=== PATIENT | female | born 1955 | race African-American/Black ===

== ENCOUNTER 2017-06-19 06:03 | Inpatient (IN) | payer BC ==
[2017-06-18] MEDS: POTASSI CL 20 MEQ/50 ML RIDER 20 MEQ/50 ML RTUPB IV SCH (10:00)
--- NOTE | 2017-06-19 06:21 | ER Document Report ---
ED General - General Chief Complaint: Shortness Of Breath Stated Complaint: SHORTNESS OF BREATH, WEAKNESS Time Seen by Provider: 06/19/17 06:13 Mode of Arrival: Ambulatory Information source: Patient Notes: 61-year-old female needs of sudden shortness breath difficulty breathing just prior to arrival. Patient notes at 5 AM she felt fine at 505 she suddenly could not breathe. Patient arrives hypoxemic tachycardic tachypneic. She denies any DVT or PE risk factors Denies any chest pain - HPI Onset: Just prior to arrival Onset/Duration: Sudden Quality of pain: No pain Severity: Severe Pain Level: Denies Associated symptoms: Shortness of breath Exacerbated by: Walking Relieved by: Denies Similar symptoms previously: No Recently seen / treated by doctor: No - Related Data Allergies/Adverse Reactions: seafood Allergy (Uncoded 06/19/17 06:46) Past Medical History - Social History Smoking Status: Never Smoker Cigarette use (# per day): No Chew tobacco use (# tins/day): No Smoking Education Provided: No Family History: Reviewed & Not Pertinent Review of Systems - Review of Systems Notes: REVIEW OF SYSTEMS: CONSTITUTIONAL : Denies fever, chills, or sweats. Denies recent illness. EENT: Denies eye, ear, throat, or mouth pain or symptoms. Denies nasal or sinus congestion or discharge. Denies throat, tongue, or mouth swelling or difficulty swallowing. CARDIOVASCULAR: Denies chest pain. Denies palpitations or racing or irregular heart beat. Denies ankle edema. RESPIRATORY: Admits shortness of breath difficulty breathing GASTROINTESTINAL: Denies abdominal pain or distention. Denies nausea, vomiting , or diarrhea. Denies blood in vomitus, stools, or per rectum. Denies black, tarry stools. Denies constipation. GENITOURINARY: Denies difficulty urinating, painful urination, burning, frequency, blood in urine, or discharge. FEMALE GENITOURINARY: Denies vaginal bleeding, heavy or abnormal periods, irregular periods. Denies vaginal discharge or odor. MUSCULOSKELETAL: Denies back or neck pain or stiffness. Denies joint pain or swelling. SKIN: Denies rash, lesions or sores. HEMATOLOGIC : Denies easy bruising or bleeding. LYMPHATIC: Denies swollen, enlarged glands. NEUROLOGICAL: Denies confusion or altered mental status. Denies passing out or loss of consciousness. Denies dizziness or lightheadedness. Denies headache. Denies weakness or paralysis or loss of use of either side. Denies problems with gait or speech. Denies sensory loss, numbness, or tingling. Denies seizures. PSYCHIATRIC: Denies anxiety or stress. Denies depression, suicidal ideation, or homicidal ideation. ALL OTHER SYSTEMS REVIEWED AND NEGATIVE. PHYSICAL EXAMINATION: GENERAL: Ill-appearing, well-nourished and in moderate acute distress. HEAD: Atraumatic, normocephalic. EYES: Pupils equal round and reactive to light, extraocular movements intact, conjunctiva are normal. ENT: Nares patent, oropharynx clear without exudates. Moist mucous membranes. NECK: Normal range of motion, supple without lymphadenopathy LUNGS: Breath sounds clear to auscultation bilaterally and equal. No wheezes rales or rhonchi. Hypoxic tachypnea HEART: Tachycardic ABDOMEN: Soft, nontender, nondistended abdomen. No guarding, no rebound. No masses appreciated. Female : deferred Musculoskeletal: Normal range of motion, no pitting or edema. No cyanosis. NEUROLOGICAL: Cranial nerves grossly intact. Normal speech, normal gait. Normal sensory, motor exams PSYCH: Normal mood, normal affect. SKIN: Warm, Dry, normal turgor, no rashes or lesions noted. Dictation was performed using [employer] voice recognition software Physical Exam - Vital signs Vitals: Pulse Resp BP Pulse Ox 136 H 22 H 128/74 H 88 L 06/19/17 06:09 06/19/17 06:09 06/19/17 06:09 06/19/17 06:09 Course - Re-evaluation Re-evalutation: 06/19/17 06:20 Patient came in with sudden hypoxemia shortness of breath, she is noted to be tachycardic tachypneic hypoxic in the room, nasal cannula immediately placed, patient will be going to for CTA chest immediately she denies any DVT or PE risk factors 06/19/17 06:43 Patient's CTA is consistent with pulmonary emboli per radiologist call, she will be started immediately on a heparin drip 06/19/17 06:50 06/19/17 07:00 Dr Christopher had been paged, awaiting call back 06/19/17 07:21 Dr. Christopher has been paged again 06/19/17 07:51 Dr Christopher cell phone called 06/19/17 07:55 Dr Christopher accepts patient to his service , states he does not take over patients until 8am - Vital Signs Vital signs: Temp Pulse Resp BP Pulse Ox 136 H 20 122/88 H 100 06/19/17 06:09 06/19/17 07:30 06/19/17 07:30 06/19/17 07:30 - Laboratory Result Diagrams: 06/19/17 06:22 06/19/17 06:22 Laboratory results interpreted by me: 06/19/17 06/19/17 06:22 06:22 Seg Neutrophils % 38.0 L Lymphocytes % 49.0 H Potassium 3.1 L Glucose 208 H Total Protein 8.4 H - Diagnostic Test Radiology reviewed: Image reviewed, Reports reviewed Discharge - Discharge Clinical Impression: Hypoxemia, Tachycardia Pulmonary emboli Qualifiers: Pulmonary embolism type: other Chronicity: acute Acute cor pulmonale presence: with acute cor pulmonale Qualified Code(s): I26.09 - Other pulmonary embolism with acute cor pulmonale Condition: Critical Disposition: ADMITTED INPATIENT Admitting Provider: Candi Unit Admitted: ICU
[2017-06-19 06:32] LABS: VENOUS BLOOD BASE EXCESS -2.7 mmol/L; VENOUS BLOOD HCO3 23.2 mmol/L (20-32); VENOUS BLOOD PCO2 44.5 mmHg (35-63); VENOUS BLOOD PH 7.34 (7.30-7.42)
[2017-06-19] MEDS ORDERED: HEPARIN SODIUM,PORCINE/D5W 25,000 UNIT/250 ML RTUINJ IV PRN ×2 (06:40→17:54)
[2017-06-19] MEDS ORDERED: HEPARIN SOD (PORCINE) 1,000 UNIT/ML 10 ML VIAL IV ONE (06:40)
[2017-06-19 06:41] LABS: ABSOLUTE BASOPHILS # (AUTO) 0.1 10^3/uL (0.0-0.2); ABSOLUTE EOSINOPHILS # (AUTO) 0.2 10^3/uL (0.0-0.6); ABSOLUTE LYMPHOCYTES (AUTO) 2.6 10^3/uL (0.5-4.7); ABSOLUTE MONOCYTES (AUTO) 0.4 10^3/uL (0.1-1.4); BASOPHILS % (AUTO) 1.7 % (0-2); EOSINOPHILS % (AUTO) 2.9 % (0-6); HEMOGLOBIN 13.6 g/dL (12.0-15.5); HGB HCT DIFFERENCE 0.8; MEAN CORPUSCULAR HEMOGLOBIN 31.4 pg (27.0-33.4); MEAN CORPUSCULAR HGB CONC 33.9 g/dL (32.0-36.0); MEAN CORPUSCULAR VOLUME 93 fl (80-97); MONOCYTES % (AUTO) 8.4 % (3-13); RED BLOOD COUNT 4.32 10^6/uL (3.72-5.28); RED CELL DISTRIBUTION WIDTH 13.2 % (11.5-14.0); WHITE BLOOD COUNT 5.3 10^3/uL (4.0-10.5)
[2017-06-19 06:48] LABS: ALANINE AMINOTRANSFERASE 29 U/L (9-52); ALBUMIN 4.6 g/dL (3.5-5.0); ALKALINE PHOSPHATASE 84 U/L (38-126); ANION GAP 16 (5-19); ASPARTATE AMINO TRANSFERASE 24 U/L (14-36); BILIRUBIN,DIRECT 0.4 mg/dL (0.0-0.4); BILIRUBIN,TOTAL 0.6 mg/dL (0.2-1.3); BLOOD UREA NITROGEN 14 mg/dL (7-20); CALCIUM 9.5 mg/dL (8.4-10.2); CARBON DIOXIDE 23 mmol/L (22-30); CHLORIDE 105 mmol/L (98-107); CREATINE KINASE 65 U/L (30-135); CREATININE RESULT 0.88 mg/dL (0.52-1.25); GLUCOSE 208 mg/dL (75-110); POTASSIUM 3.1 mmol/L (3.6-5.0); SODIUM 143.8 mmol/L (137-145); TOTAL PROTEIN 8.4 g/dL (6.3-8.2)
--- NOTE | 2017-06-19 06:48 | RADIOLOGY REPORT (SQ) ---
EXAM DESCRIPTION: CTA CHEST COMPLETED DATE/TIME: 06/19/2017 6:40 am REASON FOR STUDY: sudden hypoxemia respiratory distress COMPARISON: None. TECHNIQUE: CT scan of the chest performed using helical scanning technique with dynamic intravenous contrast injection. Images reviewed with lung, soft tissue and bone windows. Reconstructed coronal and sagittal MPR images reviewed. Additional 3 dimensional post-processing performed to develop Maximal Intensity Projection images (CT P). All images stored on PACS. All CT scanners at this facility use dose modulation, iterative reconstruction, and/or weight based d osing when appropriate to reduce radiation dose to as low as reasonably achievable (ALARA). [facility]: Dose Right [facility]: CareDose [facility]: Dose Right [facility]: Teradose 4D [facility]: Pocket CONTRAST TYPE AND DOSE: contrast/concentration: Isovue 370.00 mg/ml; Total Contrast Delivered: 77.0 ml; Total Saline Delivered: 110.0 ml Contrast bolus optimized for the pulmonary arteries. Not diagnostic for the aorta. RENAL FUNCTION: Not obtained due to severity patient's condition. RADIATION DOSE: Up-to-date CT equipment and radiation dose reduction techniques were employed. CTDIv ol: 13.2 - 17.2 mGy. DLP: 660 mGy-cm. . LIMITATIONS: None. FINDINGS: LUNGS AND PLEURA: No masses, infiltrates, pneumothorax. No pleural effusions, calcificati ons. AORTA AND GREAT VESSELS: No aneurysm. Contrast bolus not optimized for the aorta. HEART: Dilated right ventricle with slight bowing of the intraventricular septum concerning for righ t heart strain. No pericardial effusion. No significant coronary artery calcifications. PULMONARY ARTERIES: Thrombus seen within the distal left main pulmonary artery extending into lobar, segmental, and subsegmental branches. Thrombus seen within the origin of the right lobar pulmonary a rteries extending into segmental and subsegmental branches. HILAR AND MEDIASTINAL STRUCTURES: No identified masses or abnormal nodes. HARDWARE: None in the chest. UPPER ABDOMEN: No significant findings. Limited exam. THYROID AND OTHER SOFT TISSUES: No masses. No adenopathy. BONES: No acute or significant finding. 3D MIPS: Confirm above findings. OTHER: No other significant finding. IMPRESSION: MODERATE TO LARGE CLOT BURDEN PULMONARY EMBOLI DESCRIBED ABOVE WITH CT EVIDENCE SUGGE STIVE OF RIGHT HEART STRAIN. COMMENT: Pertinent findings on the imaging study reported as a CRITICAL RESULT to CHANTALE DOMINGUEZ DO at06:42 on 06/19/2017. Category of Critical Result: ACUTE PULMONARY EMBOLUS. Quality ID # 436: Final reports with documentation of one or more dose reduction techniques (e.g., Au tomated exposure control, adjustment of the mA and/or kV according to patient size, use of iterative reconstruction technique) TECHNICAL DOCUMENTATION: JOB ID: [id number] [employer]- All Rights Reserved
[2017-06-19 06:56] LABS: PARTIAL THROMBOPLASTIN TIME 27.3 SEC (23.5-35.8); PROTHROMBIN TIME 13.2 SEC (11.4-15.4)
[2017-06-19 07:00] LABS: CREATINE KINASE MB 0.56 ng/mL (<4.55)
[2017-06-19 07:02] LABS: TROPONIN I 0.045 ng/mL
--- NOTE | 2017-06-19 07:25 | EKG REPORT ---
SEVERITY:- ABNORMAL ECG - SINUS TACHYCARDIA ENRIKE, CONSIDER BIATRIAL ABNORMALITIES NONSPECIFIC LATERAL ST-T CHANGES, CLINICALC CORRELATION NEEDED, NO OLD EKG TO COMPARE. : Confirmed by: Ta Portillo MD 19-Jun-2017 07:24:59
[2017-06-19 08:05] LABS: ARTERIAL BLOOD BASE EXCESS -1.2 mmol/L; ARTERIAL BLOOD O2 SATURATION 99.5 % (94-98)
[2017-06-19] MEDS ORDERED: DOCUSATE SODIUM 100 MG CAPSULE PO PRN (08:54)
[2017-06-19] MEDS: ACETAMINOPHEN 325 MG TABLET PO PRN (09:26)
[2017-06-19] MEDS: AMLODIPINE BESYLATE 5 MG TABLET PO SCH (09:32)
[2017-06-19] MEDS ORDERED: HEPARIN SOD (PORCINE) 1,000 UNIT/ML 10 ML VIAL IV PRN (09:40)
[2017-06-19 11:57] LABS: APPEARANCE,URINE CLEAR; BILIRUBIN,URINE NEGATIVE (NEGATIVE); GLUCOSE, URINE NEGATIVE (NEGATIVE); KETONES,URINE TRACE mg/dL (NEGATIVE); LEUKOCYTE ESTERASE,URINE NEGATIVE (NEGATIVE); NITRITE,URINE NEGATIVE (NEGATIVE); PROTEIN,URINE NEGATIVE (NEGATIVE); URINE SPECIFIC GRAVITY 1.017; UROBILINOGEN,URINE NEGATIVE mg/dL (<2.0)
[2017-06-19] MEDS: POTASSI CL 20 MEQ/50 ML RIDER 20 MEQ/50 ML RTUPB IV SCH (12:07)
--- NOTE | 2017-06-19 12:11 | RADIOLOGY REPORT (SQ) ---
EXAM DESCRIPTION: VENOUS BILATERAL LOWER COMPLETED DATE/TIME: 06/19/2017 11:29 am REASON FOR STUDY: Pulmonary embolism COMPARISON: None. TECHNIQUE: Dynamic and static no scale and color images acquired of both lower extremity venous sy stems. Selected spectral images acquired with additional compression and augmentation maneuvers. Imag es stored on PACS. LIMITATIONS: None. FINDINGS: RIGHT LEG COMMON FEMORAL AND FEMORAL: Normal phasicity, compression and augmentation. No visualized echogenic m aterial on no scale. No defects on color images. POPLITEAL: Normal compression and augmentation. No visualized echogenic material on no scale. No de fects on color images. CALF VESSELS: Normal compression and augmentation. No visualized echogenic material on no scale. No defects on color image. GSV AND SSV: Normal compression. No visualized echogenic material on no scale. No defects on color images. ANY DEEP VENOUS INSUFFICIENCY: Not evaluated. ANY EVIDENCE OF POPLITEAL CYST: No. OTHER: No other significant finding. LEFT LEG COMMON FEMORAL AND FEMORAL: Normal phasicity, compression and augmentation. No visualized echogenic m aterial on no scale. No defects on color images. POPLITEAL: Normal compression and augmentation. No visualized echogenic material on no scale. No de fects on color images. CALF VESSELS: Normal compression and augmentation. No visualized echogenic material on no scale. No defects on color images. GSV AND SSV: Normal compression. No visualized echogenic material on no scale. No defects on color images. ANY DEEP VENOUS INSUFFICIENCY: Not evaluated. ANY EVIDENCE POPLITEAL CYST: No. OTHER: No other significant finding. IMPRESSION: NO EVIDENCE DVT OR SVT IN EITHER LEG. TECHNICAL DOCUMENTATION: JOB ID: [id number] [employer]- All Rights Reserved
--- NOTE | 2017-06-19 12:58 | PDOC H&P ---
History of Present Illness Admission Date/PCP: 06/19/17 08:54 Patient complains of: Sudden onset of dyspnea since 5.30 am on the day of presentation. History of Present Illness: CLAUDETTE GUPTA is a 61 year old female with hx of HTN/ Osteoarthritis of knee/William. varicose veins/Vitamin D def./Obesity, who started having sudden onset of dyspnea at 5.30 am. Denied chest pain, cough, palpitations, nausea/ vomiting, fever. Denied hx of log distance travel, surgery, OCP use or trauma. She came to ER and her oxygen saturation was 87% on RA and was tachycardic and tachypneic. CTA confirmed William. Pulmonary embolism. Past Medical History Cardiac Medical History: Reports: Hypertension Psychiatric Medical History: Denies: Depression Social History Smoking Status: Never Smoker Frequency of Alcohol Use: None Hx Recreational Drug Use: No Drugs: None Hx Prescription Drug Abuse: No - Advance Directive Resuscitation Status: Full Code Family History Family History: Reviewed & Not Pertinent Parental Family History Reviewed: Yes Children Family History Reviewed: Yes Sibling(s) Family History Reviewed.: Yes Medication/Allergy Home Medications: Amlodipine Besylate [Norvasc 5 mg Tablet] 5 mg PO DAILY 06/19/17 Cyclobenzaprine HCl [Flexeril 5 mg Tablet] 5 mg PO BIDP PRN 06/19/17 Ergocalciferol (Vitamin D2) [Drisdol 50,000 unit (1.25MG) Capsule] 50,000 unit PO VARGAS@1000 06/19/17 Phentermine HCl [Adipex-P] 37.5 mg PO DAILY 06/19/17 Allergies/Adverse Reactions: shellfish derived Allergy (Verified 06/19/17 09:06) Review of Systems All systems: reviewed and no additional remarkable complaints except as stated Constitutional: PRESENT: as per HPI Eyes: PRESENT: as per HPI Ears: PRESENT: as per HPI Nose, Mouth, and Throat: PRESENT: as per HPI Breasts: PRESENT: as per HPI Cardiovascular: PRESENT: dyspnea on exertion Respiratory: PRESENT: dyspnea Gastrointestinal: PRESENT: as per HPI Genitourinary: PRESENT: as per HPI Musculoskeletal: PRESENT: as per HPI Integumentary: PRESENT: as per HPI Neurological: PRESENT: as per HPI Psychiatric: PRESENT: as per HPI Endocrine: PRESENT: as per HPI Hematologic/Lymphatic: PRESENT: as per HPI Physical Exam Vital Signs: Temp Pulse Resp BP Pulse Ox 97.5 F 140 H 22 H 136/97 H 95 06/19/17 11:44 06/19/17 11:44 06/19/17 11:44 06/19/17 11:44 06/19/17 12:32 Intake & Output 06/18/17 06/19/17 06/20/17 06:59 06:59 06:59 Weight 92 kg General appearance: PRESENT: cooperative, mild distress, obese, well-developed, well-nourished Head exam: PRESENT: atraumatic, normocephalic Eye exam: PRESENT: EOMI, PERRLA Ear exam: PRESENT: TM's normal bilaterally Mouth exam: PRESENT: moist, neck supple Respiratory exam: PRESENT: clear to auscultation william, symmetrical Cardiovascular exam: PRESENT: +S1, +S2 Pulses: PRESENT: +2 pedal pulses bilateral Vascular exam: PRESENT: normal capillary refill GI/Abdominal exam: PRESENT: normal bowel sounds, soft Extremities exam: PRESENT: full ROM Musculoskeletal exam: PRESENT: ambulatory Neurological exam: PRESENT: alert, awake, oriented to person, oriented to place , oriented to time Psychiatric exam: PRESENT: normal mood Results Laboratory Results: 06/19/17 11:36 Urine Color STRAW Urine Appearance CLEAR Urine pH 6.0 Ur Specific [place] 1.017 Urine Protein NEGATIVE Urine Glucose (UA) NEGATIVE Urine Ketones TRACE H Urine Blood NEGATIVE Urine Nitrite NEGATIVE Ur Leukocyte Esterase NEGATIVE Urine WBC (Auto) 2 Urine RBC (Auto) 0 Impressions: Venous Doppler Study 06/19/17 00:00 IMPRESSION: NO EVIDENCE DVT OR SVT IN EITHER LEG. Chest/Abdomen CTA 06/19/17 06:18 IMPRESSION: MODERATE TO LARGE CLOT BURDEN PULMONARY EMBOLI DESCRIBED ABOVE WITH CT EVIDENCE SUGGESTIVE OF RIGHT HEART STRAIN. Assessment & Plan - Diagnosis (1) Pulmonary emboli Qualifiers: Pulmonary embolism type: other Chronicity: acute Acute cor pulmonale presence: with acute cor pulmonale Qualified Code(s): I26.09 - Other pulmonary embolism with acute cor pulmonale Is this a current diagnosis for this admission?: Yes Plan: Ct with Heparin drip; monitor PT/PTT as per protocol. F/u conduit helper, Dr Middleton; To add warfarin or newer oral agents after review by Dr Middleton. F/u Doppler US venous of both legs. (2) Acute hypoxemic respiratory failure Is this a current diagnosis for this admission?: Yes Plan: Ct with Oxygen by N/C at 2-4 L/min to keep saturation > 92%.Ct with Heparin drip and oral agents. (3) Hypertension Qualifiers: Hypertension type: essential hypertension Qualified Code(s): I10 - Essential (primary) hypertension Is this a current diagnosis for this admission?: Yes Plan: Ct with Amlodipine 5 mg q dpo; 2 g sodium diet. (4) Vitamin D deficiency Is this a current diagnosis for this admission?: Yes Plan: Ct with Vitamin D 651554kg weekly po. (5) Osteoarthritis of knees, bilateral Qualifiers: Osteoarthritis type: unspecified Qualified Code(s): M17.0 - Bilateral primary osteoarthritis of knee Is this a current diagnosis for this admission?: Yes Plan: Ct with Tylenol 650 mg q4h prn po. (6) DVT prophylaxis Is this a current diagnosis for this admission?: Yes Plan: Ct with SCD; ct with Heparin and oral agents. - Time Time Spent: 30 to 50 Minutes Medications reviewed and adjusted accordingly: Yes Anticipated discharge: Home Within: within 72 hours - Inpatient Certification Medical Necessity: Significant Comorbidiites Make Outpatient Treatment Too Risky , Need For Continuous Telemetry Monitoring, Risk of Complication if Not Cared For in Hospital, Risk of Diagnosis Which Will Require Inpatient Eval/Care/ Monitoring
[2017-06-19] MEDS: RIVAROXABAN 15 MG TABLET PO SCH (16:34)
[2017-06-19] MEDS ORDERED: ONDANSETRON HCL INJ/PF 4 MG/2 ML SDV IV PRN (20:51)
[2017-06-19] MEDS: MORPHINE SULFATE 10 MG/ML INJ IV PRN (21:51)
[2017-06-19] MEDS ORDERED: ENOXAPARIN SODIUM INJ 100 MG/1 ML DISP.SYRIN SUBCUT SCH ×2 (22:00)
[2017-06-20] MEDS: ACETAMINOPHEN 325 MG TABLET PO PRN (00:17)
[2017-06-20] MEDS: MORPHINE SULFATE 10 MG/ML INJ IV PRN ×2 (01:54→20:04)
[2017-06-20 05:43] LABS: ABSOLUTE BASOPHILS # (AUTO) 0.1 10^3/uL (0.0-0.2); ABSOLUTE LYMPHOCYTES (AUTO) 1.6 10^3/uL (0.5-4.7); ABSOLUTE MONOCYTES (AUTO) 1.6 10^3/uL (0.1-1.4); ABSOLUTE NEUT (AUTO) 7.2 10^3/uL (1.7-8.2); BASOPHILS % (AUTO) 0.8 % (0-2); EOSINOPHILS % (AUTO) 0.1 % (0-6); HEMATOCRIT 38.3 % (36.0-47.0); HGB HCT DIFFERENCE 0.7; LYMPHOCYTES % (AUTO) 15.3 % (13-45); MEAN CORPUSCULAR HEMOGLOBIN 31.6 pg (27.0-33.4); MEAN CORPUSCULAR HGB CONC 33.9 g/dL (32.0-36.0); MEAN CORPUSCULAR VOLUME 93 fl (80-97); MONOCYTES % (AUTO) 14.9 % (3-13); RED BLOOD COUNT 4.12 10^6/uL (3.72-5.28); RED CELL DISTRIBUTION WIDTH 13.7 % (11.5-14.0); SEGMENTED NEUTROPHILS % (AUTO) 68.9 % (42-78); WHITE BLOOD COUNT 10.5 10^3/uL (4.0-10.5)
[2017-06-20] MEDS: LANSOPRAZOLE 30 MG TAB.RAP.DR PO SCH (06:20)
[2017-06-20 06:44] LABS: ALANINE AMINOTRANSFERASE 26 U/L (9-52); ALKALINE PHOSPHATASE 75 U/L (38-126); ANION GAP 15 (5-19); ASPARTATE AMINO TRANSFERASE 32 U/L (14-36); BILIRUBIN,DIRECT 0.4 mg/dL (0.0-0.4); BILIRUBIN,TOTAL 0.6 mg/dL (0.2-1.3); BLOOD UREA NITROGEN 12 mg/dL (7-20); CALCIUM 9.2 mg/dL (8.4-10.2); CARBON DIOXIDE 19 mmol/L (22-30); CHLORIDE 111 mmol/L (98-107); CHOLESTEROL 177.65 mg/dL (0-200); CREATININE RESULT 0.67 mg/dL (0.52-1.25); Direct HDL 74 mg/dL (>40); GLUCOSE 130 mg/dL (75-110); SODIUM 144.8 mmol/L (137-145); TOTAL PROTEIN 7.5 g/dL (6.3-8.2); TRIGLYCERIDES 52 mg/dL (<150)
[2017-06-20 06:54] LABS: DIRECT LDL 85 mg/dL (<100)
[2017-06-20 07:24] LABS: POTASSIUM 4.3 mmol/L (3.6-5.0)
[2017-06-20] MEDS: RIVAROXABAN 15 MG TABLET PO SCH ×2 (08:23→16:33)
--- NOTE | 2017-06-20 08:53 | PDOC CONSULTATION ---
Consultation Consult Date: 06/20/17 Attending physician:: NEIL ROJO Consult reason:: Newly noted PE History of Present Illness Admission Date/PCP: 06/19/17 08:54 Patient complains of: SOB/CP History of Present Illness: 61-year-old female with recent diagnosis of large pulmonary embolism. She noted yesterday morning when she went to work, she walked a few to stairs, and she felt severe shortness of breath chest pain presyncope, she came to the ED was hypotensive and ultimately had a CT of the chest which indicated a large PE with concern of RV compromise, interestingly for the last 2 months she has been experiencing left lower extremity pain she feels like it starts in the groin area and then goes down to her left calf, she had she did have an ultrasound of the bilateral lower extremities and there was no DVT or SVT in either leg. She does have history of varicose veins however. She has never had a blood clot previously and she does not know of any strong family history of thrombotic events. She has not had any recent surgeries. Past Medical History Cardiac Medical History: Reports: Hypertension Psychiatric Medical History: Denies: Depression Social History Information Source: Patient Smoking Status: Never Smoker Frequency of Alcohol Use: None Hx Recreational Drug Use: No Drugs: None Hx Prescription Drug Abuse: No - Advance Directive Resuscitation Status: Full Code Family History Family History: Reviewed & Not Pertinent Parental Family History Reviewed: Yes Children Family History Reviewed: Yes Sibling(s) Family History Reviewed.: Yes Medication/Allergy Home Medications: Amlodipine Besylate [Norvasc 5 mg Tablet] 5 mg PO DAILY 06/19/17 Cyclobenzaprine HCl [Flexeril 5 mg Tablet] 5 mg PO BIDP PRN 06/19/17 Ergocalciferol (Vitamin D2) [Drisdol 50,000 unit (1.25MG) Capsule] 50,000 unit PO VARGAS@1000 06/19/17 Phentermine HCl [Adipex-P] 37.5 mg PO DAILY 06/19/17 Allergies/Adverse Reactions: shellfish derived Allergy (Verified 06/19/17 09:06) Review of Systems Constitutional: PRESENT: fatigue - She is leaving went over the Cardiovascular: PRESENT: chest pain, dyspnea on exertion, palpitations Respiratory: PRESENT: dyspnea Gastrointestinal: ABSENT: abdominal pain, constipation, diarrhea, hematemesis, hematochezia, nausea, vomiting Integumentary: ABSENT: rash, wounds Neurological: ABSENT: abnormal gait, abnormal speech, confusion, dizziness, focal weakness, syncope Physical Exam Vital Signs: Temp Pulse Resp BP Pulse Ox 97.6 F 111 H 18 99/60 L 97 06/20/17 07:20 06/20/17 07:20 06/20/17 07:20 06/20/17 07:20 06/20/17 07:20 Intake & Output 06/19/17 06/20/17 06/21/17 06:59 06:59 06:59 Intake Total 2994 Output Total 1000 Balance 1993 Weight 92 kg General appearance: PRESENT: no acute distress, well-developed, well-nourished Head exam: PRESENT: atraumatic, normocephalic Eye exam: PRESENT: conjunctiva pink, EOMI, PERRLA. ABSENT: scleral icterus Ear exam: PRESENT: normal external ear exam Mouth exam: PRESENT: moist, tongue midline Neck exam: ABSENT: carotid bruit, JVD, lymphadenopathy, thyromegaly Respiratory exam: PRESENT: clear to auscultation edmund. ABSENT: rales, rhonchi, wheezes Cardiovascular exam: PRESENT: RRR. ABSENT: diastolic murmur, rubs, systolic murmur Pulses: PRESENT: normal dorsalis pedis pul Vascular exam: PRESENT: normal capillary refill GI/Abdominal exam: PRESENT: normal bowel sounds, soft. ABSENT: distended, guarding, mass, organolmegaly, rebound, tenderness Rectal exam: PRESENT: deferred Extremities exam: PRESENT: full ROM. ABSENT: calf tenderness, clubbing, pedal edema Neurological exam: PRESENT: alert, awake, oriented to person, oriented to place , oriented to time, oriented to situation, CN II-XII grossly intact. ABSENT: motor sensory deficit Psychiatric exam: PRESENT: appropriate affect, normal mood. ABSENT: homicidal ideation, suicidal ideation Skin exam: PRESENT: dry, intact, warm. ABSENT: cyanosis, rash Results Laboratory Results: 06/20/17 04:18 06/20/17 04:18 06/19/17 06/20/17 06/20/17 11:36 04:18 04:18 WBC 10.5 RBC 4.12 Hgb 13.0 Hct 38.3 MCV 93 MCH 31.6 MCHC 33.9 RDW 13.7 Plt Count 132 L Seg Neutrophils % 68.9 Lymphocytes % 15.3 Monocytes % 14.9 H Eosinophils % 0.1 Basophils % 0.8 Absolute Neutrophils 7.2 Absolute Lymphocytes 1.6 Absolute Monocytes 1.6 H Absolute Eosinophils 0.0 Absolute Basophils 0.1 Sodium 144.8 Potassium 4.3 D Chloride 111 H Carbon Dioxide 19 L Anion Gap 15 BUN 12 Creatinine 0.67 Est GFR ( Amer) > 60 Est GFR (Non-Af Amer) > 60 Glucose 130 H Calcium 9.2 Magnesium 2.0 Total Bilirubin 0.6 AST 32 ALT 26 Alkaline Phosphatase 75 Total Protein 7.5 Albumin 4.0 Triglycerides 52 Cholesterol 177.65 LDL Cholesterol Direct 85 VLDL Cholesterol 10.0 HDL Cholesterol 74 TSH Urine Color STRAW Urine Appearance CLEAR Urine pH 6.0 Ur Specific [place] 1.017 Urine Protein NEGATIVE Urine Glucose (UA) NEGATIVE Urine Ketones TRACE H Urine Blood NEGATIVE Urine Nitrite NEGATIVE Ur Leukocyte Esterase NEGATIVE Urine WBC (Auto) 2 Urine RBC (Auto) 0 06/20/17 04:18 WBC RBC Hgb Hct MCV MCH MCHC RDW Plt Count Seg Neutrophils % Lymphocytes % Monocytes % Eosinophils % Basophils % Absolute Neutrophils Absolute Lymphocytes Absolute Monocytes Absolute Eosinophils Absolute Basophils Sodium Potassium Chloride Carbon Dioxide Anion Gap BUN Creatinine Est GFR ( Amer) Est GFR (Non-Af Amer) Glucose Calcium Magnesium Total Bilirubin AST ALT Alkaline Phosphatase Total Protein Albumin Triglycerides Cholesterol LDL Cholesterol Direct VLDL Cholesterol HDL Cholesterol TSH 1.28 Urine Color Urine Appearance Urine pH Ur Specific [place] Urine Protein Urine Glucose (UA) Urine Ketones Urine Blood Urine Nitrite Ur Leukocyte Esterase Urine WBC (Auto) Urine RBC (Auto) Impressions: Venous Doppler Study 06/19/17 00:00 IMPRESSION: NO EVIDENCE DVT OR SVT IN EITHER LEG. Chest/Abdomen CTA 06/19/17 06:18 IMPRESSION: MODERATE TO LARGE CLOT BURDEN PULMONARY EMBOLI DESCRIBED ABOVE WITH CT EVIDENCE SUGGESTIVE OF RIGHT HEART STRAIN. Assessment & Plan - Diagnosis (1) Pulmonary emboli Qualifiers: Pulmonary embolism type: other Chronicity: acute Acute cor pulmonale presence: with acute cor pulmonale Qualified Code(s): I26.09 - Other pulmonary embolism with acute cor pulmonale Is this a current diagnosis for this admission?: Yes Plan: Awaiting echo to see if there is RV compromise noted, I will discontinue the heparin drip and start her on Lovenox 90 mg subcu twice daily. We will monitor on Lovenox probably for 24-48 hours, thereafter she will probably need a home O2 eval to see if she will need oxygen at home. Ultimately upon discharge we would like to transition to Xarelto 15 mg twice a day for 21 days followed by 20 mg daily. She will need to be on lifelong anticoagulation. I will do hypercoagulable workup as an outpatient to further risk stratify her to see how long she needs to be on anticoagulation. - Time Time Spent: 50 to 70 Minutes Critical Time spent with patient: 25-34 minutes - Inpatient Certification Based on my medical assessment, after consideration of the patient's comorbidities, presenting symptoms, or acuity I expect that the services needed warrant INPATIENT care.: Yes I certify that my determination is in accordance with my understanding of Medicare's requirements for reasonable and necessary INPATIENT services [42 CFR 412.3e].: Yes Medical Necessity: Failure to Improve With Outpatient Therapy, Risk of Complication if Not Cared For in Hospital
[2017-06-20] MEDS: AMLODIPINE BESYLATE 5 MG TABLET PO SCH (09:29)
[2017-06-20] MEDS: ENOXAPARIN SODIUM INJ 100 MG/1 ML DISP.SYRIN SUBCUT SCH ×2 (12:35→23:35)
--- NOTE | 2017-06-20 14:45 | PDOC PROGRESS REPORT ---
Subjective Progress Note for:: 06/20/17 Subjective:: She is feeling much better today and less tachycardic. She was seen in consult by Dr Middleton and we appreciate his input in the mgt of the pt. The hypokalemia has been corrected. Anticipate possible discharge on . Physical Exam Vital Signs: Temp Pulse Resp BP Pulse Ox 97.7 F 109 H 18 106/64 94 06/20/17 11:37 06/20/17 11:37 06/20/17 11:37 06/20/17 11:37 06/20/17 11:37 Intake & Output 06/19/17 06/20/17 06/21/17 06:59 06:59 06:59 Intake Total 2994 444 Output Total 1000 Balance 1993 44 Weight 92 kg General appearance: PRESENT: no acute distress, cooperative, obese, well- developed, well-nourished Head exam: PRESENT: atraumatic, normocephalic Eye exam: PRESENT: EOMI, PERRLA Ear exam: PRESENT: TM's normal bilaterally Mouth exam: PRESENT: moist, neck supple Respiratory exam: PRESENT: clear to auscultation edmund, symmetrical Cardiovascular exam: PRESENT: +S1, +S2 Pulses: PRESENT: +2 pedal pulses bilateral GI/Abdominal exam: PRESENT: normal bowel sounds, soft Rectal exam: PRESENT: deferred Extremities exam: PRESENT: full ROM Musculoskeletal exam: PRESENT: full ROM Neurological exam: PRESENT: alert, awake, oriented to person, oriented to place , oriented to time Psychiatric exam: PRESENT: normal mood Results Laboratory Results: 06/20/17 04:18 06/20/17 04:18 06/20/17 06/20/17 06/20/17 04:18 04:18 04:18 WBC 10.5 RBC 4.12 Hgb 13.0 Hct 38.3 MCV 93 MCH 31.6 MCHC 33.9 RDW 13.7 Plt Count 132 L Seg Neutrophils % 68.9 Lymphocytes % 15.3 Monocytes % 14.9 H Eosinophils % 0.1 Basophils % 0.8 Absolute Neutrophils 7.2 Absolute Lymphocytes 1.6 Absolute Monocytes 1.6 H Absolute Eosinophils 0.0 Absolute Basophils 0.1 Sodium 144.8 Potassium 4.3 D Chloride 111 H Carbon Dioxide 19 L Anion Gap 15 BUN 12 Creatinine 0.67 Est GFR ( Amer) > 60 Est GFR (Non-Af Amer) > 60 Glucose 130 H Calcium 9.2 Magnesium 2.0 Total Bilirubin 0.6 AST 32 ALT 26 Alkaline Phosphatase 75 Total Protein 7.5 Albumin 4.0 Triglycerides 52 Cholesterol 177.65 LDL Cholesterol Direct 85 VLDL Cholesterol 10.0 HDL Cholesterol 74 TSH 1.28 Impressions: Venous Doppler Study 06/19/17 00:00 IMPRESSION: NO EVIDENCE DVT OR SVT IN EITHER LEG. Chest/Abdomen CTA 06/19/17 06:18 IMPRESSION: MODERATE TO LARGE CLOT BURDEN PULMONARY EMBOLI DESCRIBED ABOVE WITH CT EVIDENCE SUGGESTIVE OF RIGHT HEART STRAIN. Assessment & Plan - Diagnosis (1) Pulmonary emboli Qualifiers: Pulmonary embolism type: other Chronicity: acute Acute cor pulmonale presence: with acute cor pulmonale Qualified Code(s): I26.09 - Other pulmonary embolism with acute cor pulmonale Is this a current diagnosis for this admission?: Yes Plan: Ct with Lovenox 90 mg q12h subcut; Xarelto 15 mg BID for 21 days, then 20 mg qd po; F/u ECHO report. F/U Dr Middleton. (2) Acute hypoxemic respiratory failure Is this a current diagnosis for this admission?: Yes Plan: Ct with Oxygen by N/C at 2-4 L/min to keep saturation > 92%.Ct with Lovenox 90 mg q12h subcut; Xarelto 15 mg BID for 21 days then 20 mg qd po; Ct with Morphine 2 mg q4h IV prn; Zofran 4 mg q6h IV prn. F/U ECHO report. (3) Hypokalemia Is this a current diagnosis for this admission?: Yes Plan: She was given KCL 20 MEQ IV x2 doses; repeat potassium was 4.3. Monitor her chemistries daily. (4) Hypertension Qualifiers: Hypertension type: essential hypertension Qualified Code(s): I10 - Essential (primary) hypertension Is this a current diagnosis for this admission?: Yes Plan: Ct with Amlodipine 5 mg q dpo; 2 g sodium diet. (5) Vitamin D deficiency Is this a current diagnosis for this admission?: Yes Plan: Ct with Vitamin D [id number] weekly po. (6) Osteoarthritis of knees, bilateral Qualifiers: Osteoarthritis type: unspecified Qualified Code(s): M17.0 - Bilateral primary osteoarthritis of knee Is this a current diagnosis for this admission?: Yes Plan: Ct with Tylenol 650 mg q4h prn po.; ct with Morphine 2 mg q4h IV prn; Zofran 4 mg q6h IV prn. (7) DVT prophylaxis Is this a current diagnosis for this admission?: Yes Plan: Ct with SCD; ct with Lovenox and Xarelto.
[2017-06-21 05:39] LABS: HEMATOCRIT 35.7 % (36.0-47.0); HEMOGLOBIN 12.3 g/dL (12.0-15.5); HGB HCT DIFFERENCE 1.2; MEAN CORPUSCULAR HEMOGLOBIN 31.6 pg (27.0-33.4); MEAN CORPUSCULAR HGB CONC 34.6 g/dL (32.0-36.0); MEAN CORPUSCULAR VOLUME 91 fl (80-97); RED BLOOD COUNT 3.91 10^6/uL (3.72-5.28); RED CELL DISTRIBUTION WIDTH 13.4 % (11.5-14.0); WHITE BLOOD COUNT 5.8 10^3/uL (4.0-10.5)
[2017-06-21 05:52] LABS: ALANINE AMINOTRANSFERASE 52 U/L (9-52); ALBUMIN 3.7 g/dL (3.5-5.0); ALKALINE PHOSPHATASE 95 U/L (38-126); ANION GAP 13 (5-19); ASPARTATE AMINO TRANSFERASE 59 U/L (14-36); BILIRUBIN,DIRECT 0.5 mg/dL (0.0-0.4); BILIRUBIN,TOTAL 0.9 mg/dL (0.2-1.3); BLOOD UREA NITROGEN 13 mg/dL (7-20); CALCIUM 9.1 mg/dL (8.4-10.2); CARBON DIOXIDE 21 mmol/L (22-30); CHLORIDE 109 mmol/L (98-107); CREATININE RESULT 0.76 mg/dL (0.52-1.25); GLUCOSE 89 mg/dL (75-110); POTASSIUM 3.7 mmol/L (3.6-5.0); SODIUM 142.8 mmol/L (137-145); TOTAL PROTEIN 7.1 g/dL (6.3-8.2)
[2017-06-21] MEDS: LANSOPRAZOLE 30 MG TAB.RAP.DR PO SCH (06:32)
[2017-06-21 07:28] LABS: PROTHROMBIN TIME 20.8 SEC (11.4-15.4)
[2017-06-21] MEDS: RIVAROXABAN 15 MG TABLET PO SCH ×2 (07:49→17:23)
--- NOTE | 2017-06-21 08:22 | PDOC PROGRESS REPORT ---
Subjective Progress Note for:: 06/21/17 Subjective:: Patient doing better this morning, shortness of breath and chest pain are improved, echo was done but report is not available yet, I spoke with Dr. Allen who will be reading at this morning, plan for O2 evaluation this afternoon Physical Exam Vital Signs: Temp Pulse Resp BP Pulse Ox 98.5 F 107 H 18 120/72 95 06/21/17 04:35 06/21/17 04:35 06/21/17 04:35 06/21/17 04:35 06/21/17 04:35 Intake & Output 06/20/17 06/21/17 06/22/17 06:59 06:59 06:59 Intake Total 2994 1316 Output Total 1000 0 Balance 1993 131 Weight 92 kg 96.4 kg Results Laboratory Results: 06/21/17 04:48 06/21/17 04:48 06/21/17 06/21/17 04:48 04:48 WBC 5.8 RBC 3.91 Hgb 12.3 Hct 35.7 L MCV 91 MCH 31.6 MCHC 34.6 RDW 13.4 Plt Count 141 L Sodium 142.8 Potassium 3.7 Chloride 109 H Carbon Dioxide 21 L Anion Gap 13 BUN 13 Creatinine 0.76 Est GFR ( Amer) > 60 Est GFR (Non-Af Amer) > 60 Glucose 89 Calcium 9.1 Total Bilirubin 0.9 AST 59 H ALT 52 Alkaline Phosphatase 95 Total Protein 7.1 Albumin 3.7 Impressions: Venous Doppler Study 06/19/17 00:00 IMPRESSION: NO EVIDENCE DVT OR SVT IN EITHER LEG. Chest/Abdomen CTA 06/19/17 06:18 IMPRESSION: MODERATE TO LARGE CLOT BURDEN PULMONARY EMBOLI DESCRIBED ABOVE WITH CT EVIDENCE SUGGESTIVE OF RIGHT HEART STRAIN. Assessment & Plan - Diagnosis (1) Pulmonary emboli Qualifiers: Pulmonary embolism type: other Chronicity: acute Acute cor pulmonale presence: with acute cor pulmonale Qualified Code(s): I26.09 - Other pulmonary embolism with acute cor pulmonale Is this a current diagnosis for this admission?: Yes Plan: Continue anticoagulation with Lovenox today, tomorrow we will transition to Xarelto, await echo results and hope to see no true RV compromise. If we do see significant RV compromise we may need to contact a tertiary center to see if anything else is needed. However, since we have already had 3 days now of anticoagulation, unsure if they would want to do anything like thrombectomy. - Time Time Spent with patient: 35 or more minutes Critical Time spent with patient: 35 or more minutes - Inpatient Certification Based on my medical assessment, after consideration of the patient's comorbidities, presenting symptoms, or acuity I expect that the services needed warrant INPATIENT care.: Yes I certify that my determination is in accordance with my understanding of Medicare's requirements for reasonable and necessary INPATIENT services [42 CFR 412.3e].: Yes Medical Necessity: Risk of Complication if Not Cared For in Hospital
--- NOTE | 2017-06-21 09:15 | XCELERA REPORT ---
[address] [address] Transthoracic Echocardiogram Report Name: CLAUDETTE GUPTA Age: 61 yrs Gender: Female : 1955 Patient Status: Inpatient Patient Location: [address] [place] [address] Study Date: 06/20/2017 11:00 AM Height: 5 in Weight: 202 lb BSA: 0.31 m2 Procedure: A complete two-dimensional transthoracic echocardiogram was performed (2D, M-mode, spectral and color flow Doppler). The study was technically difficult with many images being suboptimal in quality. Reason For Study: Pulmonary embolism with right heart strain Ordering Physician: NEIL ROJO Performed By: Angle Gil Interpretation Summary The study was technically difficult with many images being suboptimal in quality. The left ventricular ejection fraction is normal. There is mild concentric left ventricular hypertrophy. Doppler measurements suggest pseudonormalized left ventricular relaxation, which is associated with grade II/IV or mild to moderate diastolic dysfunction The left ventricle is grossly normal size. Wall motion cannot be accurately commented on, but no definite regional wall motion abnormalities noted. The right ventricle appears to be hypertrophied The right ventricle is moderately dilated. The right atrium is moderately dilated. The left atrial size is normal. There is a trace amount of mitral regurgitation There is no mitral valve stenosis. There is no aortic valve stenosis No aortic regurgitation is present. There is a mild to moderate amount of tricuspid regurgitation There is moderate pulmonary hypertension by echo Right ventricular systolic pressure is estimated to be elevated at 50- 60mmHg. The aortic root is not well visualized. The inferior vena cava appeared normal and decreased < 50% with respiration (RAP 10-15 mmHg) There is no pericardial effusion. MMode/2D Measurements & Calculations RVDd: 3.6 cm LVIDd: 2.5 cm FS: 39.1 % Ao root diam: 2.8 cm IVSd: 1.2 cm LVIDs: 1.5 cm EDV(Teich): 22.9 ml LVPWd: 0.93 cm ESV(Teich): 6.5 ml Ao root area: 6.0 cm2 EF(Teich): 71.8 % Doppler Measurements & Calculations MV E max neelam: MV dec slope: Ao V2 max: LV V1 max P.0 cm/sec 131.6 cm/sec 5.3 mmHg MV A max neelam: 274.0 cm/sec2 Ao max PG: LV V1 max: 69.3 cm/sec MV dec time: 6.9 mmHg 115.5 cm/sec MV E/A: 0.55 0.14 sec PA V2 max: PI end-d neelam: TR max neelam: 71.9 cm/sec 156.3 cm/sec 302.9 cm/sec PA max PG: TR max P.1 mmHg 36.8 mmHg Left Ventricle The left ventricle is grossly normal size. There is mild concentric left ventricular hypertrophy. The left ventricular ejection fraction is normal. Doppler measurements suggest pseudonormalized left ventricular relaxation, which is associated with grade II/IV or mild to moderate diastolic dysfunction. Wall motion cannot be accurately commented on, but no definite regional wall motion abnormalities noted. Right Ventricle The right ventricle is moderately dilated. The right ventricle appears to be hypertrophied. The right ventricular systolic function is mildly reduced. Atria The right atrium is moderately dilated. The left atrial size is normal. Interarterial septum not well visualized and not well dopplered. Cannot comment on ASD/PFO presence. Mitral Valve The mitral valve leaflets are sclerotic, but show no functional abnormalities. There is no mitral valve stenosis. There is a trace amount of mitral regurgitation. Aortic Valve The aortic valve is sclerotic, but shows no functional abnormality. There is no aortic valve stenosis. No aortic regurgitation is present. Tricuspid Valve The tricuspid valve is not well visualized secondary to technical limitations. There is no tricuspid stenosis. There is a mild to moderate amount of tricuspid regurgitation. There is moderate pulmonary hypertension by echo. Right ventricular systolic pressure is estimated to be elevated at 50-60mmHg. Pulmonic Valve The pulmonic valve is not well visualized. Great Vessels The aortic root is not well visualized. The inferior vena cava appeared normal and decreased < 50% with respiration (RAP 10-15 mmHg). Effusions There is no pericardial effusion. : NEIL ROJO > Buffy Allen
[2017-06-21] MEDS: AMLODIPINE BESYLATE 5 MG TABLET PO SCH (10:06)
[2017-06-21] MEDS: ENOXAPARIN SODIUM INJ 100 MG/1 ML DISP.SYRIN SUBCUT SCH (11:54)
[2017-06-21 13:56] VITALS: BP 121/75
--- NOTE | 2017-06-21 15:41 | PDOC TRANSFER SUMMARY ---
General Admission Date/PCP: 06/19/17 08:54 Accepting Facility: [facility] Accepting Physician: COLLAR BASTER JUMPBASTING-Dr DIAZ/HOSPITALIST Resuscitation Status: Full Code - Transfer Diagnosis (1) Pulmonary emboli Is this a current diagnosis for this admission?: Yes (2) Acute hypoxemic respiratory failure Is this a current diagnosis for this admission?: Yes (3) Hypokalemia Is this a current diagnosis for this admission?: Yes (4) Hypertension Is this a current diagnosis for this admission?: Yes (5) Vitamin D deficiency Is this a current diagnosis for this admission?: Yes (6) Osteoarthritis of knees, bilateral Is this a current diagnosis for this admission?: Yes (7) DVT prophylaxis Is this a current diagnosis for this admission?: Yes - Transfer Medications Home Medications: Amlodipine Besylate [Norvasc 5 mg Tablet] 5 mg PO DAILY 06/19/17 Cyclobenzaprine HCl [Flexeril 5 mg Tablet] 5 mg PO BIDP PRN 06/19/17 Ergocalciferol (Vitamin D2) [Drisdol 50,000 unit (1.25MG) Capsule] 50,000 unit PO VARGAS@1000 06/19/17 Phentermine HCl [Adipex-P] 37.5 mg PO DAILY 06/19/17 Transfer Medications: Current Medications Acetaminophen (Tylenol 325 Mg Tablet) 650 mg PO Q4HP PRN PRN Reason: MILD PAIN OR TEMP > 101 Stop: 07/19/17 08:53 Last Admin: 06/20/17 00:17 Dose: 650 mg Amlodipine Besylate (Norvasc 5 Mg Tablet) 5 mg PO DAILY [facility] Stop: 07/19/17 09:59 Last Admin: 06/21/17 10:06 Dose: 5 mg Docusate Sodium (Colace 100 Mg Capsule) 100 mg PO DAILYP PRN PRN Reason: FOR CONSTIPATION Stop: 07/19/17 08:53 Last Admin: 06/19/17 09:27 Dose: 100 mg Enoxaparin Sodium (Lovenox Inj 100 Mg/1 Ml Disp.Syrin) 90 mg SUBCUT Q12@1130, 2330 [facility] Stop: 07/20/17 11:29 Last Admin: 06/21/17 11:54 Dose: 90 mg Ergocalciferol (Drisdol 50,000 Unit (1.25mg) Capsule) 50,000 unit PO VARGAS@1000 [facility] Stop: 07/25/17 09:59 Lansoprazole (Prevacid 30 Mg Odt Tablet) 30 mg PO Q6AM DANTE Stop: 07/20/17 05:59 Last Admin: 06/21/17 06:32 Dose: 30 mg Morphine Sulfate (Morphine 10 Mg/Ml Inj) 2 mg IV Q4HP PRN PRN Reason: PAIN Stop: 06/26/17 20:50 Last Admin: 06/20/17 20:04 Dose: 2 mg Ondansetron HCl (Zofran Inj/Pf 4 Mg/2 Ml Sdv) 4 mg IV Q6HP PRN PRN Reason: NAUSEA Stop: 07/19/17 20:50 Rivaroxaban (Xarelto 15 Mg Tablet) 15 mg PO BIDBS [facility] Stop: 07/19/17 16:59 Last Admin: 06/21/17 07:49 Dose: 15 mg - Allergies Allergies/Adverse Reactions: shellfish derived Allergy (Verified 06/19/17 09:06) Hospital Course Hospital Course: 61 year old woman who was admitted for sudden onset of bilateral pulmonary embolism with acute hypoxemic respiratory failure and right heart compromise confirmed by ECHO today. She has been on heparin and Xarelto since admission and has had some clinical improvement, but on walking around the unit today, she became more dyspneic, tachycardic- (heart rate increased from 108 to 133) and oxygen saturation dropped from 97% on 2 L oxygen to 85% and she became more cyanotic. The ECHO today confirmed moderate right ventricular enlargement and moderate right atrial enlargement and moderate pulmonary hypertension with normal EF. We believe she will benefit from further care at a tertiary center and 1 discussed her case with cardiothoracic surgeon, Dr Damon and later Dr Santamaria- clay mixer and they are willing to accept the patient for higher level of care at [facility]. Physical Exam Vital Signs: Temp Pulse Resp BP Pulse Ox 97.8 F 106 H 18 121/75 97 06/21/17 12:04 06/21/17 12:04 06/21/17 12:04 06/21/17 12:04 06/21/17 12:04 Intake & Output 06/20/17 06/21/17 06/22/17 06:59 06:59 06:59 Intake Total 2994 1316 Output Total 1000 0 Balance 1993 1316 Weight 92 kg 96.4 kg General appearance: PRESENT: no acute distress, cooperative, well-developed, well-nourished Head exam: PRESENT: atraumatic, normocephalic Eye exam: PRESENT: EOMI Mouth exam: PRESENT: moist, neck supple, tongue midline Respiratory exam: PRESENT: clear to auscultation edmund, symmetrical Cardiovascular exam: PRESENT: +S1, +S2 Pulses: PRESENT: +2 pedal pulses bilateral GI/Abdominal exam: PRESENT: normal bowel sounds, soft Rectal exam: PRESENT: deferred Neurological exam: PRESENT: alert, awake, oriented to person, oriented to place , oriented to time Psychiatric exam: PRESENT: normal mood Results Laboratory Results: 06/21/17 04:48 06/21/17 04:48 06/21/17 06/21/17 04:48 04:48 WBC 5.8 RBC 3.91 Hgb 12.3 Hct 35.7 L MCV 91 MCH 31.6 MCHC 34.6 RDW 13.4 Plt Count 141 L Sodium 142.8 Potassium 3.7 Chloride 109 H Carbon Dioxide 21 L Anion Gap 13 BUN 13 Creatinine 0.76 Est GFR ( Amer) > 60 Est GFR (Non-Af Amer) > 60 Glucose 89 Calcium 9.1 Total Bilirubin 0.9 AST 59 H ALT 52 Alkaline Phosphatase 95 Total Protein 7.1 Albumin 3.7 Impressions: Venous Doppler Study 06/19/17 00:00 IMPRESSION: NO EVIDENCE DVT OR SVT IN EITHER LEG. Chest/Abdomen CTA 06/19/17 06:18 IMPRESSION: MODERATE TO LARGE CLOT BURDEN PULMONARY EMBOLI DESCRIBED ABOVE WITH CT EVIDENCE SUGGESTIVE OF RIGHT HEART STRAIN.
[2017-06-25] MEDS ORDERED: ERGOCALCIFEROL (VITAMIN D2) 50000 UNIT (1.25 MG) CAPSULE PO SCH (10:00)
== END 2017-06-21 18:44 | disposition short-term general hospital (02) | DRG 175 ==
LOC: ER 06:03 → EH 08:32 → UNDOADMIN 08:32 → EH 08:54 → 3W 11:10
PROVIDERS: ADMIT Internal Medicine; ATTEND Internal Medicine
DX: I26.09 Other pulmonary embolism with acute cor pulmonale (principal); J96.01 Acute respiratory failure with hypoxia; E87.6 Hypokalemia; I10 Essential (primary) hypertension; M17.0 Bilateral primary osteoarthritis of knee; E55.9 Vitamin D deficiency, unspecified; E66.9 Obesity, unspecified; I27.20 Pulmonary hypertension, unspecified; Z79.02 Long term (current) use of antithrombotics/antiplatelets; Z68.35 Body mass index [BMI] 35.0-35.9, adult; Z91.013 Allergy to seafood
CPT/HCPCS: 36415; 36600; 71275; 80053; 80061; 81001; 82550; 82553; 82803; 83735; 83880; 84443; 84484; 85025; 85027; 85610; 85730; 87040; 93005; 93010; 93306; 93970; 99285; J1644; J1650; J2270; J3480

== ENCOUNTER → 2018-10-18 | Outpatient (CLI) | payer BC ==
--- NOTE | 2018-10-18 13:19 | RADIOLOGY REPORT (SQ) ---
EXAM DESCRIPTION: VENOUS BILATERAL LOWER COMPLETED DATE/TIME: 10/18/2018 12:05 pm REASON FOR STUDY: BLE SWELLING R22.43 LOCALIZED SWELLING, MASS AND LUMP, LOWER LIMB, BILATE COMPARISON: 06/19/2017 TECHNIQUE: Dynamic and static no scale and color images acquired of both lower extremity venous sy stems. Selected spectral images acquired with additional compression and augmentation maneuvers. Imag es stored on PACS. LIMITATIONS: None. FINDINGS: RIGHT LEG COMMON FEMORAL AND FEMORAL: Normal phasicity, compression and augmentation. No visualized echogenic m aterial on no scale. No defects on color images. POPLITEAL: Normal compression and augmentation. No visualized echogenic material on no scale. No de fects on color images. CALF VESSELS: Normal compression and augmentation. No visualized echogenic material on no scale. No defects on color image. GSV AND SSV: Occlusive thrombus in the greater saphenous vein from mid thigh to below the knee. ANY DEEP VENOUS INSUFFICIENCY: Not evaluated. ANY EVIDENCE OF POPLITEAL CYST: No. OTHER: No other significant finding. LEFT LEG COMMON FEMORAL AND FEMORAL: Normal phasicity, compression and augmentation. No visualized echogenic m aterial on no scale. No defects on color images. POPLITEAL: Normal compression and augmentation. No visualized echogenic material on no scale. No de fects on color images. CALF VESSELS: Normal compression and augmentation. No visualized echogenic material on no scale. No defects on color images. GSV AND SSV: Normal compression. No visualized echogenic material on no scale. No defects on color images. ANY DEEP VENOUS INSUFFICIENCY: Not evaluated. ANY EVIDENCE POPLITEAL CYST: No. OTHER: No other significant finding. IMPRESSION: Acute thrombosis right greater saphenous vein. No deep vein thrombosis. TECHNICAL DOCUMENTATION: JOB ID: [id number] [employer]- All Rights Reserved Reading location - IP/workstation name: [facility]
== END ==
LOC: SP 10:18
PROVIDERS: ATTEND Orthopaedic Surgery
DX: I82.811 Embolism and thrombosis of superficial veins of right lower extremity (principal)
CPT/HCPCS: 93970

== ENCOUNTER 2020-07-17 08:49 | Day surgery (SDC) | payer BC ==
--- NOTE | 2020-07-14 13:28 | EKG REPORT ---
SEVERITY:- NORMAL ECG - SINUS RHYTHM : Confirmed by: Carrington Bowles MD 14-Jul-2020 13:28:05
[2020-07-14 14:07] LABS: APPEARANCE,URINE SLIGHTLY-CLOUDY; BILIRUBIN,URINE NEGATIVE (NEGATIVE); COLOR,URINE YELLOW; GLUCOSE, URINE NEGATIVE (NEGATIVE); KETONES,URINE NEGATIVE (NEGATIVE); LEUKOCYTE ESTERASE,URINE NEGATIVE (NEGATIVE); NITRITE,URINE NEGATIVE (NEGATIVE); PROTEIN,URINE NEGATIVE (NEGATIVE)
[2020-07-14 14:08] LABS: HEMATOCRIT 40.2 % (36.0-47.0); HEMOGLOBIN 13.5 g/dL (12.0-15.5); MEAN CORPUSCULAR HEMOGLOBIN 30.9 pg (27.0-33.4); MEAN CORPUSCULAR HGB CONC 33.5 g/dL (32.0-36.0); MEAN CORPUSCULAR VOLUME 92 fl (80-97); PLATELET COUNT 149 10^3/uL (150-450); RED BLOOD COUNT 4.37 10^6/uL (3.72-5.28); RED CELL DISTRIBUTION WIDTH 14.6 % (11.5-14.0); WHITE BLOOD COUNT 3.4 10^3/uL (4.0-10.5)
[2020-07-14 14:23] LABS: ALBUMIN 4.4 g/dL (3.5-5.0); ALKALINE PHOSPHATASE 66 U/L (38-126); ANION GAP 8 (5-19); ASPARTATE AMINO TRANSFERASE 26 U/L (14-36); BILIRUBIN,DIRECT 0.2 mg/dL (0.0-0.4); BILIRUBIN,TOTAL 0.5 mg/dL (0.2-1.3); BLOOD UREA NITROGEN 12 mg/dL (7-20); CALCIUM 9.7 mg/dL (8.4-10.2); CARBON DIOXIDE 28 mmol/L (22-30); CHLORIDE 105 mmol/L (98-107); GLUCOSE 97 mg/dL (75-110); POTASSIUM 4.6 mmol/L (3.6-5.0); TOTAL PROTEIN 7.9 g/dL (6.3-8.2)
[~2020-07-17 08:49] MED LIST: CEFAZOLIN 2 GM/D5W RTU 2 GM/50 ML RTUPB IV ONE; CEFAZOLIN 2 GM/D5W RTU 2 GM/50 ML RTUPB IV PRN; FENTANYL CITRATE INJ/PF 250 MCG/5 ML AMPULE ONE; HYDROMORPHONE HCL INJ/PF 2 MG/ML AMPULE ONE; LACTATED RINGERS 1000 ML IV PRN; MIDAZOLAM 2 MG/2 ML INJ ONE; PROPOFOL INJ 200 MG/20 ML VIAL IV ONE; SUGAMMADEX SODIUM 200 MG/2 ML SDV IV ONE
[2020-07-17] MEDS ORDERED: SUCCINYLCHOLINE CHLORIDE INJ 200 MG/10 ML VIAL ONE (09:41)
[2020-07-17] MEDS ORDERED: METOCLOPRAMIDE HCL INJ/PF 10 MG/2 ML SDV ONE (09:41)
[2020-07-17] MEDS ORDERED: DIPHENHYDRAMINE HCL 50 MG/ML VIAL ONE (09:41)
[2020-07-17] MEDS ORDERED: KETOROLAC TROMETHAMINE 60 MG/2 ML SDV ONE (09:41)
[2020-07-17] MEDS ORDERED: DEXAMETHASONE SOD PHOSPHATE INJ 4 MG/1 ML VIAL ONE (09:41)
[2020-07-17] MEDS ORDERED: ROCURONIUM BROMIDE INJ 50 MG/5 ML VIAL IV ONE (09:41)
[2020-07-17] MEDS ORDERED: ONDANSETRON HCL INJ/PF 4 MG/2 ML SDV ONE (09:41)
[2020-07-17] MEDS ORDERED: LIDOCAINE 0.5%/EPINEPHRINE INJ 50 ML VIAL ONE (10:31)
[2020-07-17] MEDS ORDERED: SILVER SULFADIAZINE 1% CREAM 25 GM ONE (11:12)
[2020-07-17] MEDS ORDERED: FENTANYL CITRATE INJ/PF 100 MCG/2 ML AMPUL IV PRN ×3 (11:18)
[2020-07-17] MEDS ORDERED: DIPHENHYDRAMINE HCL 50 MG/ML VIAL IV PRN (11:18)
[2020-07-17] MEDS ORDERED: MEPERIDINE HCL/PF INJ 25 MG/1 ML DISP.SYRIN IV PRN (11:18)
[2020-07-17] MEDS ORDERED: OXYCODONE-ACETAMINOPHEN 5-325 MG TABLET PO PRN ×4 (11:18→13:14)
[2020-07-17] MEDS ORDERED: MORPHINE SULFATE 10 MG/ML INJ IV PRN (11:18)
[2020-07-17] MEDS ORDERED: PROMETHAZINE HCL INJ 25 MG/1 ML VIAL IV PRN ×3 (11:18→13:14)
[2020-07-17] MEDS ORDERED: SIMETHICONE 80 MG TAB.CHEW PO PRN (13:14)
[2020-07-17] MEDS ORDERED: ACETAMINOPHEN 325 MG TABLET PO PRN (13:14)
[2020-07-17] MEDS ORDERED: ACETAMINOPHEN 1,000 MG/100 ML RTUPB IV PRN (13:14)
[2020-07-17] MEDS ORDERED: OXYTOCIN/0.9 % SODIUM CHLORIDE 30 UNIT/500 ML RTUINJ IV PRN (13:14)
[2020-07-17] MEDS ORDERED: HYDROMORPHONE HCL INJ/PF 2 MG/ML AMPULE IV PRN (13:14)
--- NOTE | 2020-07-17 13:38 | Operative Report ---
Operative Report DATE OF SURGERY: 07/17/20 PREOPERATIVE DIAGNOSIS: Uterine prolapse cystocele gaping introitus POSTOPERATIVE DIAGNOSIS: Same OPERATION: Laparoscopic-assisted vaginal hysterectomy with bilateral salpingectomy and oophorectomy with an anterior repair and perineorrhaphy SURGEON: DAWOOD PADGETT ANESTHESIA: GA TISSUE REMOVED OR ALTERED: Uterus cervix ovaries fallopian tubes COMPLICATIONS: None ESTIMATED BLOOD LOSS: 250 cc INTRAOPERATIVE FINDINGS: Slightly enlarged uterus for age. Normal-appearing tubes and ovaries. Uterine prolapse with large cystocele and gaping introitus. PROCEDURE: Patient was taken back to the OR and placed in supine position. General anesthesia was induced. She is placed in the dorsolithotomy position using Devin stirrups. Her abdomen perineum and vagina were prepared and draped in a sterile fashion. A Green catheter was placed into the bladder for drainage. A weighted speculum was placed in the vagina and the anterior lip of the cervix was grasped with a tenaculum. The cervix was gently dilated and a V care uterine manipulator was placed. The balloon on the uterine manipulator was inflated. An incision was made at the umbilicus and natural umbilical defect was identified and a blunt port was placed. This allowed laparoscopy which confirmed appropriate placement. The abdomen was insufflated with CO2 gas. 2 lateral ports were placed one on the right and one on the left under laparoscopic visualization. Also a midline suprapubic port was placed under laparoscopic visualization. The uterus had a large anterior fibroid. Next the pelvis was inspected. The ureters were identified laterally. Next the the left ovary and tube were elevated to the midline and the infundibulopelvic pedicle was cauterized with the LigaSure device and cut. The round ligament on the left was also cauterized with the LigaSure device and cut. Staying directly next to the uterus the broad ligament was cauterized with the LigaSure device and cut. The anterior leaf of the broad ligament was incised creating a bladder flap. The right ovary and tube were elevated to the midline and the infundibulopelvic pedicle was cauterized with LigaSure device and cut. The round ligament on the right side likewise was cauterized and cut with LigaSure device. In the anterior leaf the broad ligament was incised completing the bladder flap. Staying next to the uterus the broad ligament was cauterized with the LigaSure device and cut. Next bilaterally the uterine arteries were cauterized with the LigaSure device and cut. Next the hook cautery was used to make a circumferential incision on top of the V care cup incising the vaginal cuff. From below the uterus was removed through the vaginal incision. A long weighted speculum was placed and a Ajit was used to retract anteriorly. The pedicles were inspected for bleeding and there was some bleeding noted at the right vaginal angle. This was grasped with an Allis clamp and clamped with a curved Chloé clamp. A transfixation suture of 0 Vicryl was placed providing good hemostasis. The remainder of the blood was evacuated with suction. No further active bleeding was noted. Angle sutures were then placed bilaterally of 0 Vicryl incorporating anterior vaginal mucosa and posterior vaginal mucosa and tying bilaterally. Once again I checked internally for hemostasis and I saw no active bleeding. Next the midline of the anterior vaginal incision was grasped with Allis clamps. In the midline the tissue was infiltrated with a dilute solution of lidocaine with epinephrine. And a midline incision on the vaginal mucosa was performed with Metzenbaum scissors. The edges of the incision were grasped with Allis clamps in succession. The vaginal skin was off the underlying tissue with sharp and blunt dissection. And the cystocele was pushed back and upwards. Interrupted sutures of 2-0 Vicryl were then placed bringing the lateral tissue over the cystocele. The excess vaginal mucosa was then trimmed and the anterior vaginal incision was closed with interrupted sutures of 2-0 Vicryl. This held the cystocele in nicely. Next the vaginal cuff incision was closed with in a running fashion closing from left to right. The anterior vaginal mucosa was sutured to the posterior vaginal mucosa in a running locking fashion. Once again hemostasis looked good. Next the posterior repair was performed. The edges of the were grasped at 5 and 7:00 with Allis clamps. The rectum was quite close to the vagina from an old obstetric laceration. There was not a very large perineal body to work with. In the midline the vaginal mucosa was undermined with a dilute solution of lidocaine with epinephrine. The vaginal skin was incised in the midline with Metzenbaum scissors. The edges were grasped and the vaginal skin was reflected off the underlying tissue using sharp and blunt dissection. The the edges of the vaginal incision were trimmed. The vaginal mucosa was then brought together with a running locking 2-0 Vicryl suture to the perineal body. An interrupted suture was of 2-0 Vicryl was placed in the perineal body bringing it together and closing off the caliber of the vagina. A second suture was placed in the perineal body bringing it together. And the skin over the perineal body was closed with a 2-0 Vicryl suture x1 in interrupted fashion. This greatly reduced the diameter of the vaginal opening. A gentle rectal exam was performed and there was no evidence of any sutures through to the rectum. At this point the surgeon rescrubbed and the laparoscope was inserted at the umbilicus once again. The digital marketing executive aspirator was used to remove any remaining blood in the pelvis and the pedicles were inspected for bleeding. No active bleeding was noted. The ureters were inspected and appeared normal in size and peristalsing. At this point the laparoscopic ports were removed. The gas was allowed to escape from the abdomen. The umbilical port and scope were removed at same time. The fascia at the umbilicus was closed with a 2-0 Vicryl stitch and skin at all 4 sites closed with a 4-0 undyed Vicryl stitch. The urine in the Green was clear and yellow. The patient was extubated in the OR and taken recovery in stable condition.
[2020-07-17 14:32] LABS: ABSOLUTE BASOPHILS # (AUTO) 0.1 10^3/uL (0.0-0.2); ABSOLUTE MONOCYTES (AUTO) 0.1 10^3/uL (0.1-1.4); ABSOLUTE NEUT (AUTO) 5.7 10^3/uL (1.7-8.2); BASOPHILS % (AUTO) 2.1 % (0-2); EOSINOPHILS % (AUTO) 0.1 % (0-6); HEMATOCRIT 37.8 % (36.0-47.0); HEMOGLOBIN 12.7 g/dL (12.0-15.5); LYMPHOCYTES % (AUTO) 14.2 % (13-45); MEAN CORPUSCULAR HEMOGLOBIN 31.3 pg (27.0-33.4); MEAN CORPUSCULAR HGB CONC 33.7 g/dL (32.0-36.0); MEAN CORPUSCULAR VOLUME 93 fl (80-97); MONOCYTES % (AUTO) 1.4 % (3-13); PLATELET COUNT 164 10^3/uL (150-450); RED BLOOD COUNT 4.06 10^6/uL (3.72-5.28); RED CELL DISTRIBUTION WIDTH 14.5 % (11.5-14.0); SEGMENTED NEUTROPHILS % (AUTO) 82.2 % (42-78); TOTAL CELLS COUNTED % (AUTO) 100 %; WHITE BLOOD COUNT 6.9 10^3/uL (4.0-10.5)
[2020-07-17 15:02] LABS: ANION GAP 7 (5-19); BLOOD UREA NITROGEN 15 mg/dL (7-20); CALCIUM 9.1 mg/dL (8.4-10.2); CARBON DIOXIDE 25 mmol/L (22-30); CHLORIDE 104 mmol/L (98-107); GLUCOSE 152 mg/dL (75-110); POTASSIUM 3.7 mmol/L (3.6-5.0)
[2020-07-17] MEDS: DOCUSATE SODIUM 100 MG CAPSULE PO SCH (18:46)
[2020-07-17] MEDS: RINGERS SOLUTION,LACTATED 1,000 ML IV PRN (18:51)
[2020-07-18] MEDS: RINGERS SOLUTION,LACTATED 1,000 ML IV PRN (02:42)
[2020-07-18 07:31] LABS: HEMOGLOBIN 11.4 g/dL (12.0-15.5); MEAN CORPUSCULAR HEMOGLOBIN 31.5 pg (27.0-33.4); MEAN CORPUSCULAR HGB CONC 33.7 g/dL (32.0-36.0); MEAN CORPUSCULAR VOLUME 93 fl (80-97); PLATELET COUNT 149 10^3/uL (150-450); RED BLOOD COUNT 3.64 10^6/uL (3.72-5.28); RED CELL DISTRIBUTION WIDTH 14.2 % (11.5-14.0)
[2020-07-18 08:15] VITALS: BP 121/64
--- NOTE | 2020-07-18 09:19 | PDOC DISCHARGE SUMMARY ---
Impression - Admit/DC Date/PCP Admission Date/Primary Care Provider: NEIL ROJO Discharge Date: 07/18/20 - Discharge Diagnosis (1) Pelvic organ prolapse quantification stage 2 cystocele Is this a current diagnosis for this admission?: Yes (2) Pelvic relaxation due to uterine prolapse Is this a current diagnosis for this admission?: Yes - Assessment Summary: She was admitted for a LAVH BSO and A and P repair. This was done yesterday. Please see the op report. She did well through the night. Her mi is removed and she is voiding and tolerating a regular diet. She is ready to go home today. Followup is next week. - Additional Information Resuscitation Status: Full Code Discharge Diet: Regular Discharge Activity: Balance Activity w/Rest, No Lifting Over 10 Pounds, Pelvic Rest Referrals: NEIL ROJO MD [Primary Care Provider] - DAWOOD PADGETT MD [ACTIVE STAFF] - 07/22/20 8:30 am (CALL THE OFFICE OF ANY QUESTIONS OR CONCERNS) Prescriptions: Oxycodone HCl/Acetaminophen [Percocet 5-325 mg Tablet] 1 tab PO Q4HP PRN #20 tablet PRN Reason: Ibuprofen [Motrin 800 mg Tablet] 800 mg PO Q6 #30 tablet Home Medications: Amlodipine Besylate [Norvasc 5 mg Tablet] 5 mg PO DAILY 06/19/17 Cyclobenzaprine HCl [Flexeril 5 mg Tablet] 5 mg PO BIDP PRN 06/19/17 Ergocalciferol (Vitamin D2) [Drisdol 50,000 unit (1.25MG) Capsule] 50,000 unit PO VARGAS@1000 06/19/17 Ibuprofen [Motrin 800 mg Tablet] 800 mg PO Q6 #30 tablet 07/18/20 Oxycodone HCl/Acetaminophen [Percocet 5-325 mg Tablet] 1 tab PO Q4HP PRN #20 tablet 07/18/20 History of Present Illiness History of Present Illness: CLAUDETTE GUPTA is a 64 year old female Physical Exam - Physical Exam Vital Signs: Temp Pulse Resp BP Pulse Ox 97.8 F 66 16 121/64 99 07/18/20 07:52 07/18/20 07:52 07/18/20 07:52 07/18/20 07:52 07/18/20 07:52 Intake & Output 07/17/20 07/18/2020 06:59 06:59 06:59 Intake Total 3731 Output Total 1800 Balance 1931 Weight 95 kg Results Laboratory Results: WBC 8.0 10^3/uL (4.0-10.5) 07/18/20 07:13 RBC 3.64 10^6/uL (3.72-5.28) L 07/18/20 07:13 Hgb 11.4 g/dL (12.0-15.5) L 07/18/20 07:13 Hct 34.0 % (36.0-47.0) L 07/18/20 07:13 MCV 93 fl (80-97) 07/18/20 07:13 MCH 31.5 pg (27.0-33.4) 07/18/20 07:13 MCHC 33.7 g/dL (32.0-36.0) 07/18/20 07:13 RDW 14.2 % (11.5-14.0) H 07/18/20 07:13 Plt Count 149 10^3/uL (150-450) L 07/18/20 07:13 Lymph % (Auto) 14.2 % (13-45) 07/17/20 14:16 [place] % (Auto) 1.4 % (3-13) L 07/17/20 14:16 Eos % (Auto) 0.1 % (0-6) 07/17/20 14:16 Baso % (Auto) 2.1 % (0-2) H 07/17/20 14:16 Absolute Neuts (auto) 5.7 10^3/uL (1.7-8.2) 07/17/20 14:16 Absolute Lymphs (auto) 1.0 10^3/uL (0.5-4.7) 07/17/20 14:16 Absolute Monos (auto) 0.1 10^3/uL (0.1-1.4) 07/17/20 14:16 Absolute Eos (auto) 0.0 10^3/uL (0.0-0.6) 07/17/20 14:16 Absolute Basos (auto) 0.1 10^3/uL (0.0-0.2) 07/17/20 14:16 Seg Neutrophils % 82.2 % (42-78) H 07/17/20 14:16 Sodium 136.3 mmol/L (137-145) L 07/17/20 14:16 Potassium 3.7 mmol/L (3.6-5.0) 07/17/20 14:16 Chloride 104 mmol/L (98-107) 07/17/20 14:16 Carbon Dioxide 25 mmol/L (22-30) 07/17/20 14:16 Anion Gap 7 (5-19) 07/17/20 14:16 BUN 15 mg/dL (7-20) 07/17/20 14:16 Creatinine 0.67 mg/dL (0.52-1.25) 07/17/20 14:16 Est GFR ( Amer) > 60 (>60) 07/17/20 14:16 Est GFR (MDRD) Non-Af > 60 (>60) 07/17/20 14:16 Glucose 152 mg/dL (75-110) H 07/17/20 14:16 Calcium 9.1 mg/dL (8.4-10.2) 07/17/20 14:16 Total Bilirubin 0.5 mg/dL (0.2-1.3) 07/14/20 12:32 Direct Bilirubin 0.2 mg/dL (0.0-0.4) 07/14/20 12:32 Neonat Total Bilirubin Not Reportable 07/14/20 12:32 Neonat Direct Bilirubin Not Reportable 07/14/20 12:32 Neonat Indirect Bili Not Reportable 07/14/20 12:32 AST 26 U/L (14-36) 07/14/20 12:32 ALT 11 U/L (<35) 07/14/20 12:32 Alkaline Phosphatase 66 U/L (38-126) 07/14/20 12:32 Total Protein 7.9 g/dL (6.3-8.2) 07/14/20 12:32 Albumin 4.4 g/dL (3.5-5.0) 07/14/20 12:32 Urine Color YELLOW 07/14/20 12:44 Urine Appearance SLIGHTLY-CLOUDY 07/14/20 12:44 Urine pH 6.0 (5.0-9.0) 07/14/20 12:44 Ur Specific [place] 1.020 07/14/20 12:44 Urine Protein NEGATIVE mg/dL (NEGATIVE) 07/14/20 12:44 Urine Glucose (UA) NEGATIVE mg/dL (NEGATIVE) 07/14/20 12:44 Urine Ketones NEGATIVE mg/dL (NEGATIVE) 07/14/20 12:44 Urine Blood NEGATIVE (NEGATIVE) 07/14/20 12:44 Urine Nitrite NEGATIVE (NEGATIVE) 07/14/20 12:44 Urine Bilirubin NEGATIVE (NEGATIVE) 07/14/20 12:44 Urine Urobilinogen 2.0 mg/dL (<2.0) H 07/14/20 12:44 Ur Leukocyte Esterase NEGATIVE (NEGATIVE) 07/14/20 12:44 Urine WBC (Auto) 0 /HPF 07/14/20 12:44 Urine RBC (Auto) 0 /HPF 07/14/20 12:44 Squamous Epi Cells Auto 6 /HPF 07/14/20 12:44 Urine Mucus (Auto) MOD /LPF 07/14/20 12:44 Urine Ascorbic Acid NEGATIVE (NEGATIVE) 07/14/20 12:44 COVID-19 Source See comment 07/14/20 12:26 COVID-19 (MARTIN) Not Detected (Not Detect) 07/14/20 12:26 Blood Type A POSITIVE 07/14/20 12:32 Antibody Screen NEGATIVE 07/14/20 12:32 Stroke Is this a Stroke Patient?: No Acute Heart Failure Is this a Heart Failure Patient?: No
[2020-07-18] MEDS: DOCUSATE SODIUM 100 MG CAPSULE PO SCH (10:17)
[2020-07-18] MEDS ORDERED: IBUPROFEN 800 MG TABLET PO SCH (18:00)
== END 2020-07-18 13:20 | disposition home or self-care (01) ==
LOC: OROUT 08:49 → 2N 14:30 → OROUT 07-18 13:20
PROVIDERS: ATTEND Obstetrics & Gynecology
DX: N81.2 Incomplete uterovaginal prolapse (principal); N87.9 Dysplasia of cervix uteri, unspecified; N72 Inflammatory disease of cervix uteri; N84.0 Polyp of corpus uteri; N80.0 Endometriosis of uterus; D25.0 Submucous leiomyoma of uterus; N83.8 Other noninflammatory disorders of ovary, fallopian tube and broad ligament; Z20.828 Contact with and (suspected) exposure to other viral communicable diseases; I10 Essential (primary) hypertension; Z79.899 Other long term (current) drug therapy; Z86.718 Personal history of other venous thrombosis and embolism; Z86.711 Personal history of pulmonary embolism
CPT/HCPCS: 93005; 86900; 86901; 36415 ×2; 86850; 85025; 85027 ×2; 80048; 80053; 81001; 88307 ×2; 94799; 93010; 00840; 58552; 57260; C1758; U0003; J2250; J3490 ×3; J1100; J1200; J1885; J3010; J2765; J1170; J0330; J2405; J7120 ×2; J2704; J0690; C9803; 840; 87635